=== PATIENT | male | born 1980 | race Caucasian/White ===

== ENCOUNTER → 2023-10-30 13:14 | Outpatient (REF) | payer BC, SELFPAY | LOC: RAD 13:14 | PROVIDERS: ATTENDING PHYSICIAN Family Medicine | DX: N50.89 Other specified disorders of the male genital organs (principal) | CPT/HCPCS: 76870; 93976 ==

== ENCOUNTER 2024-09-29 06:22 | Day surgery (SDC) | payer BC, SELFPAY | END 2024-09-29 13:21 | disposition home or self-care (01) | LOC: GI 06:22 | PROVIDERS: ATTENDING PHYSICIAN Internal Medicine Gastroenterology; FAMILY PHYSICIAN Family Medicine | DX: Z12.11 Encounter for screening for malignant neoplasm of colon (principal); K57.30 Diverticulosis of large intestine without perforation or abscess without bleeding; K64.0 First degree hemorrhoids; D12.4 Benign neoplasm of descending colon | CPT/HCPCS: 45385; 88305 ==

== ENCOUNTER → 2025-03-19 16:00 | Outpatient (REF) | payer BC, SELFPAY | LOC: RAD 16:00 | PROVIDERS: ATTENDING PHYSICIAN Family Medicine | DX: Z77.090 Contact with and (suspected) exposure to asbestos (principal) | CPT/HCPCS: 71046 ==

== ENCOUNTER → 2025-06-02 10:31 | Outpatient (REF) | payer BC, SELFPAY | LOC: RAD 10:31 | PROVIDERS: ATTENDING PHYSICIAN Radiology Diagnostic Radiology; FAMILY PHYSICIAN Family Medicine | DX: Z13.29 Encounter for screening for other suspected endocrine disorder (principal) | CPT/HCPCS: 70030 ==

== ENCOUNTER → 2025-06-03 06:36 | Outpatient (REF) | payer BC, SELFPAY | LOC: MRI 06:36 | PROVIDERS: ATTENDING PHYSICIAN Physical Medicine & Rehabilitation; FAMILY PHYSICIAN Family Medicine | DX: M54.51 Vertebrogenic low back pain (principal); M54.50 Low back pain, unspecified; M51.26 Other intervertebral disc displacement, lumbar region | CPT/HCPCS: 72148 ==